=== PATIENT | female | born 1985 ===

== ENCOUNTER 2016-08-08 13:16 | Emergency (ER) | payer MEDICAID ==
[2016-08-08 13:29] VITALS: TEMP 98.7; O2SAT 98
[2016-08-08] MEDS ORDERED: Sodium Chloride 0.9% 1,000 ML IV STA (13:42)
[2016-08-08 14:01] LABS: BASO # 0.1 K/uL (0.0-0.2); BASO % 0.8 % (0.0-2.0); EOS % 0.2 % (0.0-4.0); HEMATOCRIT 45.1 % (34.0-47.0); MEAN CELL VOLUME 87.8 fl (81.0-99.0); MEAN CORPUSCULAR HEMOGLOBIN 29.9 pg (27.0-31.0); MEAN CORPUSCULAR HGB CONC 34.1 g/dL (33.0-37.0); MEAN PLATELET VOLUME 10.3 fl (7.2-11.7); MONO # 1.2 K/uL (0.0-0.8); MONO % 10.6 % (0.0-10.0); NEUT % 70.4 % (50.0-75.0); NRBC % 0.1 % (0.0-0.0); RED CELL DISTRIBUTION WIDTH 12.8 % (11.5-14.5); WHITE BLOOD COUNT 11.4 K/uL (4.8-10.8)
[2016-08-08 14:10] LABS: ALCOHOL SERUM < 10 mg/dl (0-10); ALKALINE PHOSPHATASE 65 U/L (38-126); ALT/SGPT 24 U/L (9-52); AST/SGOT 32 U/L (14-36); BILIRUBIN,TOTAL 2.1 mg/dl (0.2-1.3); BLOOD UREA NITROGEN 8 mg/dl (7-17); CALCIUM 10.1 mg/dL (8.4-10.2); CARBON DIOXIDE 18 mmol/L (22-30); CHLORIDE 107 mmol/L (98-107); GFR AFRICAN-AMERICAN > 60; GLUCOSE,RANDOM 94 mg/dL (65-105); SODIUM 140 mmol/l (132-148); TOTAL PROTEIN 8.9 G/DL (6.3-8.2)
[2016-08-08 14:13] LABS: POTASSIUM 3.2 MMOL/L (3.6-5.0)
--- NOTE | 2016-08-08 14:15 | ED PDOC ---
HPI: General Adult Time Seen by Provider: 08/08/16 13:31 Chief Complaint (Nursing): Abdominal Pain Chief Complaint (Provider): Abdominal Pain History Per: Patient History/Exam Limitations: no limitations Onset/Duration Of Symptoms: Hrs Current Symptoms Are (Timing): Still Present Additional Complaint(s): 30 y/o female presents to the emergency department with a complaint of drinking a large amount of alcohol yesterday and today feels "dehydrated." Associated with cramping to her hands and legs with nausea, shortness of breath and vomiting. Last ingestion of alcohol was at 3a.m. Denies recent travel. PMD: None Past Medical History Reviewed: Historical Data, Nursing Documentation, Vital Signs Vital Signs: Last Vital Signs Temp 98.7 F 08/08/16 13:28 Pulse 86 08/08/16 19:30 Resp 18 08/08/16 19:30 BP 104/70 08/08/16 19:30 Pulse Ox 98 08/09/16 09:32 - Medical History PMH: No Chronic Diseases - Surgical History Surgical History: No Surg Hx - Family History Family History: States: Unknown Family Hx - Living Arrangements Living Arrangements: With Family - Social History Current smoker - smoking cessation education provided: Yes Alcohol: Social - Immunization History Hx Tetanus Toxoid Vaccination: Yes Hx Influenza Vaccination: No Hx Pneumococcal Vaccination: No - Home Medications Home Medications: Ambulatory Orders Medication Instructions Recorded Famotidine [Pepcid] 40 mg PO DAILY PRN #10 tab 08/08/16 Ondansetron ODT [Zofran ODT] 1 odt PO Q6 PRN #20 odt 08/08/16 chlordiazePOXIDE [Chlordiazepoxide 25 mg PO Q6 PRN #8 cap 08/08/16 HCl] - Allergies Allergies/Adverse Reactions: Allergies Allergy/AdvReac Type Severity Reaction Status Date / Time No Known Allergies Allergy Unverified 04/24/13 19:54 Review of Systems ROS Statement: Except As Marked, All Systems Reviewed And Found Negative Constitutional: Positive for: Other (Dehydration) Respiratory: Positive for: Shortness of Breath Gastrointestinal: Positive for: Nausea, Vomiting Musculoskeletal: Positive for: Other (Cramping of the fingers and legs) Physical Exam - Reviewed Nursing Documentation Reviewed: Yes Vital Signs Reviewed: Yes - Physical Exam Appears: Positive for: Non-toxic, No Acute Distress Head Exam: Positive for: ATRAUMATIC, NORMOCEPHALIC Skin: Positive for: Normal Color, Warm, Dry Neck: Positive for: Normal, Supple Cardiovascular/Chest: Positive for: Regular Rate, Rhythm. Negative for: Murmur Respiratory: Positive for: Normal Breath Sounds. Negative for: Accessory Muscle Use, Respiratory Distress Gastrointestinal/Abdominal: Positive for: Normal Exam, Soft. Negative for: Tenderness Extremity: Positive for: Normal ROM Neurologic/Psych: Positive for: Alert, Oriented, Mood/Affect (Anxious) - Laboratory Results Result Diagrams: 08/08/16 13:54 08/08/16 13:54 - ECG O2 Sat by Pulse Oximetry: 98 Medical Decision Making Medical Decision Making: Time: 13:31 Initial impression: Dehydration status post alcohol ingestion Initial plan: --Electrocardiogram Stat --Alcohol Serum Stat --COMP Metabolic Panel --Drug Screen, Urine Stat --ED Urine Dipstick (POC) Stat --ED Urine (POC) --EKG-ED (EDNURTX) Stat --Pepcid 20 mg IVP --Sodium Chloride 1,000 ml IV 1,000 mls/hr --Zofran INJ 4 mg IVP --IV Insertion --Revaluation Scribe Attestation: Documented by Nelli Damon, acting as a scribe for Nola Lowry MD. Provider Scribe Attestation: All medical record entries made by the Scribe were at my direction and personally dictated by me. I have reviewed the chart and agree that the record accurately reflects my personal performance of the history, physical exam, medical decision making, and the department course for this patient. I have also personally directed, reviewed, and agree with the discharge instructions and disposition. Disposition - Clinical Impression Clinical Impression: Dyspepsia, Dehydration, Hypokalemia - Patient ED Disposition Is Patient to be Admitted: Transfer of Care - Disposition Referrals: [facility] [Outside] (PLEASE FOLLOW UP WITH A PRIMARY CARE PHYSICIAN NEXT WEEK FOR REEVALUATION) Xavier Rivera MD [Staff Provider] - Disposition: Transfer of Care Disposition Time: 15:00 Condition: IMPROVED Additional Instructions: DRINK PLENTY OF HYDRATING (NONALCOHOLIC) FLUIDS SLOWLY AND REST TAKE MEDICATIONS PRESCRIBED. Prescriptions: chlordiazePOXIDE [Chlordiazepoxide HCl] 25 mg PO Q6 PRN #8 cap PRN Reason: alcohol withdrawal symptoms Famotidine [Pepcid] 40 mg PO DAILY PRN #10 tab PRN Reason: reflux Ondansetron ODT [Zofran ODT] 1 odt PO Q6 PRN #20 odt PRN Reason: Nausea/Vomiting Instructions: Gastritis (ED), Dehydration (ED) Patient Signed Over To: Ankita Powell Present On Arrival: None
[2016-08-08] MEDS ORDERED: Potassium Chloride 20 mEq ER Tab PO ONE ×2 (14:33→14:50)
--- NOTE | 2016-08-08 15:16 | ED PDOC ---
- Laboratory Results Result Diagrams: 08/08/16 13:54 08/08/16 13:54 - ECG O2 Sat by Pulse Oximetry: 98 (RA) Pulse Ox Interpretation: Normal Medical Decision Making Medical Decision Makin:00 Patient endorsed over to me by Nola Lowry MD, pending remainder of ED workup, reevaluation and final disposition. On eval pt very anxious and shaky. Valium ordered. 18:00 Pt nauseous. Additional IV pepcid and zofran. Scribe Attestation: Documented by Jocelyn Munoz, acting as a scribe for Ankita Powell MD. Provider Scribe Attestation: All medical record entries made by the Scribe were at my direction and personally dictated by me. I have reviewed the chart and agree that the record accurately reflects my personal performance of the history, physical exam, medical decision making, and the department course for this patient. I have also personally directed, reviewed, and agree with the discharge instructions and disposition. Disposition - Clinical Impression Clinical Impression: Dyspepsia, Dehydration, Hypokalemia - POA Present On Arrival: None - Disposition Referrals: Xavier Rivera MD [Staff Provider] - [facility] [Outside] (PLEASE FOLLOW UP WITH A PRIMARY CARE PHYSICIAN NEXT WEEK FOR REEVALUATION) Disposition: Routine/Home Disposition Time: 19:00 Condition: IMPROVED Additional Instructions: DRINK PLENTY OF HYDRATING (NONALCOHOLIC) FLUIDS SLOWLY AND REST TAKE MEDICATIONS PRESCRIBED. Prescriptions: chlordiazePOXIDE [Chlordiazepoxide HCl] 25 mg PO Q6 PRN #8 cap PRN Reason: alcohol withdrawal symptoms Famotidine [Pepcid] 40 mg PO DAILY PRN #10 tab PRN Reason: reflux Ondansetron ODT [Zofran ODT] 1 odt PO Q6 PRN #20 odt PRN Reason: Nausea/Vomiting Instructions: Gastritis (ED), Dehydration (ED)
[2016-08-08 19:58] VITALS: BP 104/70; PULSE 86; RESP 18
--- NOTE | 2016-08-09 10:24 | CARD ---
APPROVED REPORT EKG Measurement Heart [id number] <Conclusion> Sinus bradycardia Rightward axis Nonspecific ST abnormality Prolonged QT Abnormal ECG
== END 2016-08-08 19:53 | disposition home or self-care (01) ==
LOC: H.ER 13:16
DX: E87.6 Hypokalemia (principal); E86.0 Dehydration; R10.13 Epigastric pain

== ENCOUNTER 2017-06-12 17:56 | Emergency (ER) | payer OTHER, MEDICAID ==
[2017-06-12 18:03] VITALS: BP 129/71; PULSE 85; RESP 18; TEMP 97.3; O2SAT 99
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
== END 2017-06-12 19:20 | disposition home or self-care (01) ==
LOC: H.ER 17:56
DX: M54.9 Dorsalgia, unspecified (principal); M54.2 Cervicalgia; V43.52XA Car driver injured in collision with other type car in traffic accident, initial encounter; Y92.410 Unspecified street and highway as the place of occurrence of the external cause; J45.909 Unspecified asthma, uncomplicated

== ENCOUNTER 2017-07-11 13:53 | Emergency (ER) | payer MEDICAID ==
[2017-07-11 14:03] VITALS: BMI 29.8
[2017-07-11 14:05] VITALS: BP 103/56; PULSE 74; RESP 20; TEMP 98.2; O2SAT 100
--- NOTE | 2017-07-11 14:41 | ED PDOC ---
HPI: Female Pain Time Seen by Provider: 07/11/17 14:39 Chief Complaint (Nursing): Female Genitourinary Chief Complaint (Provider): abd pain/ History Per: Patient (31 y/o female M1 here with vaginal spotting/lower abd crampy pain. Denies any dysuria. Has been unable to get appt for women's clinic until 08/2017.) Past Medical History Reviewed: Historical Data, Nursing Documentation, Vital Signs Vital Signs: Last Vital Signs Temp 98.2 F 07/11/17 14:03 Pulse 74 07/11/17 14:03 Resp 20 07/11/17 14:03 BP 103/56 L 07/11/17 14:03 Pulse Ox 100 07/11/17 14:03 - Medical History PMH: Asthma - Family History Family History: States: Unknown Family Hx - Immunization History Hx Tetanus Toxoid Vaccination: Yes Hx Influenza Vaccination: No Hx Pneumococcal Vaccination: No - Home Medications Home Medications: Ambulatory Orders Medication Instructions Recorded Cyclobenzaprine [Cyclobenzaprine 10 mg PO Q8H PRN #12 tab 06/12/17 HCl] Ibuprofen [Motrin Tab] 800 mg PO Q6H PRN #20 tab 06/12/17 - Allergies Allergies/Adverse Reactions: Allergies Allergy/AdvReac Type Severity Reaction Status Date / Time No Known Allergies Allergy Unverified 08/09/16 19:57 Review of Systems ROS Statement: Except As Marked, All Systems Reviewed And Found Negative Physical Exam - Reviewed Nursing Documentation Reviewed: Yes Vital Signs Reviewed: Yes - Physical Exam Appears: Positive for: Well, Non-toxic, No Acute Distress Head Exam: Positive for: ATRAUMATIC, NORMAL INSPECTION, NORMOCEPHALIC Skin: Positive for: Normal Color, Warm, DRY Eye Exam: Positive for: EOMI, Normal appearance, PERRL ENT: Positive for: Normal ENT Inspection Neck: Positive for: Normal, Painless ROM Cardiovascular/Chest: Positive for: Regular Rate, Rhythm Respiratory: Positive for: CNT, Normal Breath Sounds Gastrointestinal/Abdominal: Positive for: Normal Exam, Bowel Sounds, Soft Pelvic Exam: Positive for: Other. Negative for: Active Bleeding, Tender Adnexa Back: Positive for: Normal Inspection Extremity: Positive for: Normal ROM Neurologic/Psych: Positive for: Alert, Oriented - Laboratory Results Result Diagrams: 07/11/17 14:45 07/11/17 14:45 Urine POC: Positive Urine dip results: Negative for: Leukocyte Esterase, Blood, Nitrate, Ketones, Glucose, Bilirubin, Protein - ECG O2 Sat by Pulse Oximetry: 100 - Progress ED Course And Treament: ED transvaginal US: IMPRESSION: Small cystic structure within the endometrium which may represent a gestational sac. No yolk sac or pole identified. Findings may represent early normal/ abnormal with ectopic not excluded. Close clinical follow- up with serial pelvic sonography and serum beta HCG levels is recommended. Nonvisualization of the left ovary. Disposition - Clinical Impression Clinical Impression: Abdominal pain affecting - Patient ED Disposition Is Patient to be Admitted: No - Disposition [facility]errals[facility] [Outside] Disposition: Routine/Home Disposition Time: 16:35 Condition: FAIR Additional Instructions: PLEASE RETURN TO ED IN 2 DAYS AND THEN 2 DAYS AFTER FOR EVALUATION OF BETA HCG Instructions: Threatened Miscarriage, Bleeding With (DC) Forms: [employer] (Brazilian)
--- NOTE | 2017-07-11 15:19 | US ---
PROCEDURE: OB Pelvic Ultrasound HISTORY: r/o ectopic LMP: 06/04/2017 COMPARISON: Pelvic ultrasound dated 01/18/2012. FINDINGS: UTERUS: Uterus measures 10.6 x 5.5 x 6.3 cm. Anteverted. Normal in size and appearance. Cystic structure within the endometrium measuring 0.7 cm. No pole identified. CERVIX: Measures 4.7 cm. Long and closed. No cervical abnormality seen. RIGHT OVARY: Measures 2.2 x 2.0 x 2.5 cm. No mass lesion. Normal flow. LEFT OVARY: Not visualized FREE FLUID: Trace free-fluid. OTHER FINDINGS: None. IMPRESSION: Small cystic structure within the endometrium which may represent a gestational sac. No yolk sac or pole identified. Findings may represent early normal/ abnormal with ectopic not excluded. Close clinical follow-up with serial pelvic sonography and serum beta HCG levels is recommended. Nonvisualization of the left ovary.
[2017-07-11 15:20] LABS: BASO # 0.1 K/uL (0.0-0.2); BASO % 1.1 % (0.0-2.0); EOS # 0.1 K/uL (0.0-0.7); EOS % 1.4 % (0.0-4.0); HEMOGLOBIN 13.5 g/dL (12.0-16.0); LYMPH # 1.5 K/uL (1.0-4.3); MEAN CORPUSCULAR HEMOGLOBIN 29.7 pg (27.0-31.0); MEAN CORPUSCULAR HGB CONC 33.8 g/dL (33.0-37.0); MEAN PLATELET VOLUME 10.5 fl (7.2-11.7); MONO # 0.8 K/uL (0.0-0.8); MONO % 9.9 % (0.0-10.0); NEUT # 5.6 K/uL (1.8-7.0); NEUT % 69.6 % (50.0-75.0); RBC 4.55 Mil/uL (3.80-5.20); RED CELL DISTRIBUTION WIDTH 13.6 % (11.5-14.5); WHITE BLOOD COUNT 8.1 K/uL (4.8-10.8)
[2017-07-11 15:24] LABS: BLOOD UREA NITROGEN 10 mg/dl (7-17); CALCIUM 9.1 mg/dL (8.4-10.2); GFR AFRICAN-AMERICAN > 60; GFR NON-AFRICAN AMERICAN > 60
[2017-07-11 15:32] LABS: B-TYPE NATRIURETIC PEPTIDE 94.6 pg/ml (0-450)
== END 2017-07-11 16:57 | disposition home or self-care (01) ==
LOC: H.ER 13:53
DX: O26.899 Other specified pregnancy related conditions, unspecified trimester (principal)

== ENCOUNTER 2017-07-16 14:13 | Emergency (ER) | payer MEDICAID ==
[2017-07-16 14:14] VITALS: BMI 29.8
[2017-07-16 14:19] VITALS: BP 101/63; PULSE 61; RESP 16; TEMP 97.6; O2SAT 100
--- NOTE | 2017-07-16 15:58 | ED PDOC ---
HPI: General Adult Time Seen by Provider: 07/16/17 14:25 Chief Complaint (Nursing): Abnormal Labs Chief Complaint (Provider): abnoemal labs History Per: Patient History/Exam Limitations: no limitations Onset/Duration Of Symptoms: Days Current Symptoms Are (Timing): Better Recently: Seen In ED (July 11) Additional Complaint(s): Ankita Perez is a 31 year old female with a past medical history of asthma, who is presenting to the ER for a repeat Beta-HCG test. Patient was seen in this ER on July 11 for vaginal bleeding and cramping in the setting of , and was told to come back to the ER 2 days later for a repeat of the lab. Today, she denies any bleeding or cramping. Patient offers no other medical complaints at this time. PMD: none provided Past Medical History Reviewed: Historical Data, Nursing Documentation, Vital Signs Vital Signs: Last Vital Signs Temp 97.6 F 07/16/17 14:16 Pulse 61 07/16/17 14:16 Resp 16 07/16/17 14:16 BP 101/63 07/16/17 14:16 Pulse Ox 100 07/16/17 16:00 - Medical History PMH: Asthma - Surgical History Surgical History: - Family History Family History: States: Unknown Family Hx - Social History Current smoker - smoking cessation education provided: Yes (less than 10 cigarettes a day) Alcohol: Occasional Drugs: Denies - Immunization History Hx Tetanus Toxoid Vaccination: Yes Hx Influenza Vaccination: No Hx Pneumococcal Vaccination: No - Home Medications Home Medications: Ambulatory Orders Medication Instructions Recorded Cyclobenzaprine [Cyclobenzaprine 10 mg PO Q8H PRN #12 tab 06/12/17 HCl] Ibuprofen [Motrin Tab] 800 mg PO Q6H PRN #20 tab 06/12/17 - Allergies Allergies/Adverse Reactions: Allergies Allergy/AdvReac Type Severity Reaction Status Date / Time No Known Allergies Allergy Unverified 08/09/16 19:57 Review of Systems ROS Statement: Except As Marked, All Systems Reviewed And Found Negative Gastrointestinal: Negative for: Other (cramping) Genitourinary Female: Negative for: Vaginal Bleeding, Other (cramping) Physical Exam - Reviewed Nursing Documentation Reviewed: Yes Vital Signs Reviewed: Yes - Physical Exam Appears: Positive for: Well, Non-toxic, No Acute Distress Head Exam: Positive for: ATRAUMATIC, NORMAL INSPECTION, NORMOCEPHALIC Skin: Positive for: Normal Color Neck: Positive for: Normal Extremity: Positive for: Normal ROM. Negative for: Deformity, Swelling Neurologic/Psych: Positive for: Alert, Oriented. Negative for: Motor/Sensory Deficits - ECG O2 Sat by Pulse Oximetry: 100 (RA) Pulse Ox Interpretation: Normal Medical Decision Making Medical Decision Making: Time: 14:38 Plan: --Beta-HCG, Quantitative Beta HcG 23,000 Scribe Attestation: Documented by Preeti Figueroa, acting as a scribe for Taylor Bliss PA-C Provider Scribe Attestation: All medical record entries made by the Scribe were at my direction and personally dictated by me. I have reviewed the chart and agree that the record accurately reflects my personal performance of the history, physical exam, medical decision making, and the department course for this patient. I have also personally directed, reviewed, and agree with the discharge instructions and disposition. Disposition - Clinical Impression Clinical Impression: - Patient ED Disposition Is Patient to be Admitted: No Counseled Patient/Family Regarding: Diagnosis, Need For Followup - Disposition [facility]errals: [facility] [Outside] Disposition: Routine/Home Disposition Time: 16:13 Condition: GOOD Additional Instructions: Please begin taking vitamins. Follow-up with OB. Copy of labs have been provided. Instructions: Care Forms: [employer] (Guatemalan)
== END 2017-07-16 16:20 | disposition home or self-care (01) ==
LOC: H.ER 14:13
DX: Z33.1 Pregnant state, incidental (principal)

== ENCOUNTER 2017-08-31 11:24 | Emergency (ER) | payer MEDICAID ==
[2017-08-31 11:24] VITALS: BMI 29.8
[2017-08-31 11:32] VITALS: PULSE 76
--- NOTE | 2017-08-31 12:03 | ED PDOC ---
HPI: General Adult Time Seen by Provider: 08/31/17 11:49 Chief Complaint (Nursing): Trauma Chief Complaint (Provider): fall History Per: Patient Additional Complaint(s): 31-year-old female currently 13 weeks presents to emergency department with right-sided back pain and lower abdominal pain status post trip and fall. Patient states that she tripped down 4 stairs while getting her daughter ready this morning. Eyes head injury or loss of consciousness. She has been able to walk since time of fall. She has not noticed any vaginal bleeding since time of fall. Patient has soreness to right side of lower back and slight pain to lower abdomen. OB: [facility] Past Medical History Reviewed: Historical Data, Nursing Documentation, Vital Signs Vital Signs: Last Vital Signs Temp 76 F L 08/31/17 11:31 Pulse 76 08/31/17 11:31 Resp BP 116/69 08/31/17 11:31 Pulse Ox 98 08/31/17 13:42 - Medical History PMH: Asthma Other PMH: (1 miscarriage) - Surgical History Surgical History: (x 1) - Family History Family History: States: No Known Family Hx - Living Arrangements Living Arrangements: With Family - Social History Current smoker - smoking cessation education provided: No Alcohol: None Drugs: Denies - Home Medications Home Medications: Ambulatory Orders Medication Instructions Recorded Cyclobenzaprine [Cyclobenzaprine 10 mg PO Q8H PRN #12 tab 06/12/17 HCl] Ibuprofen [Motrin Tab] 800 mg PO Q6H PRN #20 tab 06/12/17 - Allergies Allergies/Adverse Reactions: Allergies Allergy/AdvReac Type Severity Reaction Status Date / Time No Known Allergies Allergy Unverified 08/09/16 19:57 Review of Systems ROS Statement: Except As Marked, All Systems Reviewed And Found Negative Gastrointestinal: Positive for: Abdominal Pain (s/p fall) Genitourinary Female: Negative for: Dysuria, Incontinence, Vaginal Bleeding Musculoskeletal: Positive for: Back Pain (s/p fall) Neurological: Positive for: Other (denies head injury or LOC) Physical Exam - Reviewed Nursing Documentation Reviewed: Yes Vital Signs Reviewed: Yes - Physical Exam Appears: Positive for: Well, Non-toxic, No Acute Distress Skin: Negative for: Rash Eye Exam: Positive for: Normal appearance Neck: Positive for: Normal, Painless ROM Cardiovascular/Chest: Positive for: Regular Rate, Rhythm Respiratory: Positive for: Normal Breath Sounds. Negative for: Respiratory Distress Gastrointestinal/Abdominal: Positive for: Other (Gravid nontender abdomen) Back: Positive for: Vertebral Tenderness (right lower lumbar region) Extremity: Positive for: Normal ROM Neurologic/Psych: Positive for: Alert, Oriented, Gait (steady) - Laboratory Results Urine dip results: Negative for: Leukocyte Esterase, Blood, Nitrate, Ketones, Glucose, Bilirubin, Protein - ECG O2 Sat by Pulse Oximetry: 98 Pulse Ox Interpretation: Normal - Other Rad OB US X-Ray: Read By Radiologist X-Ray Interpretation: see below Medical Decision Making Medical Decision Makin31 year old currently 13 weeks with abd pain and back pain s/p fall Plan: Pain meds declined OB US Urine dip US: FINDINGS: Cardiac activity: Present Rate: 160 BPM Measurements: [place] rump length: 6.74 cm, Gestational age based on CRL 13 weeks BPD 2.20 cm corresponds to a gestational age of 13 weeks 4 days. Femoral length 0.94 cm corresponds to gestational age of 12 weeks 6 days. Gestational age derived from LMP: 12 weeks 4 days NOA based on LMP: 03/11/2018 NOA based on biometry: 03/07/2018 Gestational concordance documented Yolk sac not identified Uterus: Unremarkable. Cervix: No Cervical abnormalities: Negative examination for cervical dilatation or effacement. Closed cervix measuring 4.9 cm Subchorionic hemorrhage: None UTERUS: 7.6 x 10.8 x 15.9 cm. ADNEXA: Right: Not visualized Left: 1.5 x 1.6 x 3.0 cm. Normal Doppler arterial waveform documented Fluid in the cul-de-sac: None IMPRESSION: 13 weeks 1 day live intrauterine gestation. Gestational concordance documented. Patient is aware of all diagnostic testing results, all questions answered. Advised Tylenol for pain and follow up with OB in 2-3 days. Patient is aware she can return to ED any time if acutely worse. Disposition - Clinical Impression Clinical Impression: Muscle strain, Abdominal pain affecting - Patient ED Disposition Is Patient to be Admitted: No Counseled Patient/Family Regarding: Studies Performed, Diagnosis, Need For Followup - Disposition Referrals: [facility] [Outside] Disposition: Routine/Home Disposition Time: 14:20 Condition: STABLE Additional Instructions: Tylenol for pain as needed. Follow up with OB in 2-3 days or return to dictate any time is acutely worse. Instructions: Muscle Strain, Abdominal Trauma in Forms: [employer] (Welsh)
[2017-08-31 14:53] VITALS: BP 129/81; RESP 16; TEMP 98; O2SAT 99
--- NOTE | 2017-09-01 09:22 | US ---
PROCEDURE: ultrasound, limited. HISTORY: 13 weeks, s/p fall this AM, with abd pain COMPARISON: 07/11/2017. TECHNIQUE: Standard protocol for this study/examination. FINDINGS: LMP: 06/04/2017 Prior examinations from the current : 07/11/2017 go TECHNIQUE: Real-time 2D imaging, duplex and color Doppler. FINDINGS: Cardiac activity: Present Rate: 160 BPM Measurements: [place] rump length: 6.74 cm Gestational age based on CRL 13 weeks BPD 2.20 cm corresponds to a gestational age of 13 weeks 4 days. Femoral length 0.94 cm corresponds to gestational age of 12 weeks 6 days. Gestational age derived from LMP: 12 weeks 4 days NOA based on LMP: 03/11/2018 NOA based on biometry: 03/07/2018 Gestational concordance documented Yolk sac not identified Uterus: Unremarkable. Cervix: No Cervical abnormalities: Negative examination for cervical dilatation or effacement. Closed cervix measuring 4.9 cm Subchorionic hemorrhage: None UTERUS: 7.6 x 10.8 x 15.9 cm. ADNEXA: Right: Not visualized Left: 1.5 x 1.6 x 3.0 cm. Normal Doppler arterial waveform documented Fluid in the cul-de-sac: None IMPRESSION: 13 weeks 1 day live intrauterine gestation. Gestational concordance documented.
== END 2017-08-31 14:30 | disposition home or self-care (01) ==
LOC: H.ER 11:24
DX: O26.891 Other specified pregnancy related conditions, first trimester (principal); T14.8XXA Other injury of unspecified body region, initial encounter; W10.9XXA Fall (on) (from) unspecified stairs and steps, initial encounter; J45.909 Unspecified asthma, uncomplicated

== ENCOUNTER 2017-10-28 19:12 | Emergency (ER) | payer MEDICAID ==
[2017-10-28 19:49] VITALS: BMI 30.2
[2017-10-28] MEDS: Lactated Ringer's 1,000 ML IV SCH ×2 (20:15→21:00)
[2017-10-28 20:32] LABS: BASO % 0.7 % (0.0-2.0); EOS % 0.6 % (0.0-4.0); LYMPH # 0.7 K/uL (1.0-4.3); LYMPH % 14.3 % (20.0-40.0); MEAN CORPUSCULAR HEMOGLOBIN 29.2 pg (27.0-31.0); MEAN CORPUSCULAR HGB CONC 33.5 g/dL (33.0-37.0); MEAN PLATELET VOLUME 10.6 fl (7.2-11.7); MONO # 0.8 K/uL (0.0-0.8); MONO % 14.9 % (0.0-10.0); NEUT # 3.6 K/uL (1.8-7.0); NEUT % 69.5 % (50.0-75.0); NRBC % 0.1 % (0.0-0.0); RBC 4.45 Mil/uL (3.80-5.20); RED CELL DISTRIBUTION WIDTH 13.6 % (11.5-14.5); WHITE BLOOD COUNT 5.2 K/uL (4.8-10.8)
[2017-10-28 20:41] LABS: SQUAMOUS EPITHIAL 9 /hpf (0-5); URINE BILIRUBIN NEGATIVE (NEGATIVE); URINE BLOOD NEGATIVE (NEGATIVE); URINE CLARITY CLOUDY (Clear); URINE COLOR AMBER (YELLOW); URINE GLUCOSE (UA) NEG (Normal); URINE LEUKOCYTE ESTERASE NEG Leu/uL (Negative); URINE PROTEIN 30 mg/dL (NEGATIVE); URINE UROBILINOGEN 0.2-1.0 mg/dL (0.2-1.0)
[2017-10-28 20:42] LABS: ALB/GLOB RATIO 1.1 (1.0-2.1); ALT/SGPT 29 U/L (9-52); AMYLASE 46 U/L (30-110); AST/SGOT 22 U/L (14-36); BLOOD UREA NITROGEN 7 mg/dl (7-17); CALCIUM 8.8 mg/dL (8.4-10.2); GFR AFRICAN-AMERICAN > 60; GFR NON-AFRICAN AMERICAN > 60; LIPASE 25 U/L (23-300)
== END 2017-10-28 21:40 | disposition home or self-care (01) ==
LOC: H.EROB2 19:12
DX: O21.0 Mild hyperemesis gravidarum (principal); O26.93 Pregnancy related conditions, unspecified, third trimester; R19.7 Diarrhea, unspecified; Z3A.21 21 weeks gestation of pregnancy
CPT/HCPCS: 80053; 81003; 82150; 83690; 85025; 99283; J7120